=== PATIENT | male | born 1995 | race Caucasian/White ===

== ENCOUNTER 2020-02-18 09:40 | Emergency (ER) | payer OTHER ==
[~2020-02-18] VITALS: Ht 177.8 cm; Wt 72.1 kg
[2020-02-18 09:56] VITALS: Ht 177.8 cm; Wt 72.1 kg
[2020-02-18 11:39] VITALS: BP 141/71
== END 2020-02-18 11:39 | disposition home or self-care (01) ==
LOC: ED 09:40
DX: S06.0X0A Concussion without loss of consciousness, initial encounter (principal); M54.16 Radiculopathy, lumbar region; Z88.0 Allergy status to penicillin; Z98.890 Other specified postprocedural states; V49.9XXA Car occupant (driver) (passenger) injured in unspecified traffic accident, initial encounter; Y93.89 Activity, other specified; Y92.89 Other specified places as the place of occurrence of the external cause; Y99.8 Other external cause status
CPT/HCPCS: Q0092